=== PATIENT | female | born 1970 | race American Indian/Alaskan Native ===

== ENCOUNTER 2017-07-09 18:20 | Emergency (ER) | payer SELFPAY ==
[2017-07-09 18:51] LABS: Basophils # (Auto) 0.1 K/mm3 (0.0-0.1); Eosinophils # (Auto) 0.2 K/mm3 (0.0-0.4); Eosinophils % (Auto) 2.1 % (0.0-4.3); Hematocrit 39.4 % (30.3-42.9); Hemoglobin 13.1 gm/dl (10.1-14.3); Lymphocytes # (Auto) 2.4 K/mm3 (1.2-5.4); Lymphocytes % (Auto) 31.4 % (13.4-35.0); Mean Corpuscular HGB Conc 33 % (30-34); Mean Corpuscular Hemoglobin 30 pg (28-32); Mean Corpuscular Volume 88 fl (79-97); Monocytes # (Auto) 0.6 K/mm3 (0.0-0.8); Monocytes % (Auto) 8.1 % (0.0-7.3); Platelet Count 208 K/mm3 (140-440); Red Blood Count 4.46 M/mm3 (3.65-5.03); Red Cell Distribution Width 13.5 % (13.2-15.2)
[2017-07-09 19:16] LABS: Alanine Aminotransferase 10 units/L (7-56); Albumin 4.2 g/dL (3.9-5); BUN/Creatinine Ratio 21; Blood Urea Nitrogen 17 mg/dL (7-17); Calcium 9.3 mg/dL (8.4-10.2); Hemolysis Index 1
[2017-07-09 19:39] LABS: Bilirubin,Urine NEG (Negative); Blood,Urine MOD (Negative); Color,Urine Yellow (Yellow); Hyaline Casts,Urine 1 /LPF; Mucus,Urine FEW /HPF; Nitrite,Urine NEG (Negative); Protein,Urine <15 mg/dL mg/dL (Negative)
[2017-07-10] MEDS ORDERED: ZOFRAN IV ONE (00:15)
[2017-07-10] MEDS ORDERED: MORPHINE IV ONE (00:16)
--- NOTE | 2017-07-10 00:18 | Emergency Department Report ---
HPI - General Chief Complaint: Abdominal Pain Time Seen by Provider: 07/09/17 19:28 - HPI HPI: This is a 46 year-old female presents to the emergency department from home with complaint of a one-week history of progressively worsening abdominal pain that currently is located in the left lower quadrant and flank. She denies any dysuria, constipation, diarrhea, fever, vomiting, vaginal bleeding or discharge. She does have some slight nausea. She has a past medical history that includes IBS and she has had colonic polyps removed twice over the past 2 years. She moved here from [place] and therefore does not have any primary care or physician president here. She did not take anything for her symptoms prior to presentation. No known aggravating or alleviating factors. ED Past Medical Hx - Past Medical History Previous Medical History?: Yes Additional medical history: Colon polyps, IBS, Hiatal hernia, Sluggish bowel, Colonoscopies, RBC and WBC elevated in urine 02-22-2017 - Surgical History Past Surgical History?: Yes Hx Appendectomy: Yes Additional Surgical History: colonoscopies, Cervical spine fusion, Right rotator cuff surgery, Uterine ablation - Social History Smoking Status: Never Smoker Substance Use Type: Alcohol, Marijuana, Non Opiate Pain, Prescribed - Medications Home Medications: Home Medications Medication Instructions Recorded Confirmed Last Taken Type HYDROcodone/APAP 5-325 [Hayes 1 each PO Q6HR PRN #10 tablet 07/10/17 Unknown Rx 5/325] ED Review of Systems ROS: Stated complaint: ABDOMINAL PAIN Other details as noted in HPI Comment: All other systems reviewed and negative Constitutional: denies: chills, fever Eyes: denies: eye pain, eye discharge, vision change ENT: denies: ear pain, throat pain Respiratory: denies: cough, shortness of breath, wheezing Cardiovascular: denies: chest pain, palpitations Gastrointestinal: abdominal pain, nausea. denies: vomiting Genitourinary: denies: urgency, dysuria, discharge Musculoskeletal: denies: back pain, joint swelling, arthralgia Skin: denies: rash, lesions Neurological: denies: headache, weakness, paresthesias Physical Exam - Physical Exam Vital Signs: Vital Signs 07/09/17 18:30 Temperature 97.6 F Pulse Rate 68 Respiratory 20 Rate Blood Pressure 150/93 O2 Sat by Pulse 99 Oximetry Physical Exam: GENERAL: The patient is well-developed well-nourished. HENT: Normocephalic. Atraumatic. Patient has moist mucous membranes. EYES: Extraocular motions are intact. Pupils equal reactive to light bilaterally. NECK: Supple. Trachea is midline. CHEST/LUNGS: Clear to auscultation. There is no respiratory distress noted. HEART/CARDIOVASCULAR: Regular. There is no tachycardia. There is no murmur. ABDOMEN: Abdomen is soft. There is some left lower quadrant tenderness to palpation. No guarding or rebound tenderness. Patient has normal bowel sounds. There is no abdominal distention. SKIN: Skin is warm and dry. NEURO: The patient is awake, alert, and oriented. The patient is cooperative. The patient has no focal neurologic deficits. The patient has normal speech. MUSCULOSKELETAL: There is no tenderness or deformity. There is no limitation range of motion. There is no evidence of acute injury. ED Course Vital Signs 07/09/17 18:30 Temperature 97.6 F Pulse Rate 68 Respiratory 20 Rate Blood Pressure 150/93 O2 Sat by Pulse 99 Oximetry ED Medical Decision Making - Lab Data Result diagrams: 07/09/17 18:39 07/09/17 18:39 - Radiology Data Radiology results: report reviewed PROCEDURE: CT ABDOMEN PELVIS W CON TECHNIQUE: Computerized axial tomography of the abdomen and pelvis was performed after the IV injection of iodinated nonionic contrast. HISTORY: LLQ abd and flank pain COMPARISON: No prior studies are available for comparison. FINDINGS: Visualized lower thorax: No significant abnormality. Liver: Normal size and attenuation. There are multiple liver cysts. Largest cyst is in the right lobe measuring 3 centimeters. There is no solid liver lesion. Spleen: Normal size and attenuation. Gallbladder and biliary system: Normal. Pancreas: Normal. Adrenals: Normal. Kidneys: There is a 16 millimeter cyst in the lower pole of the right kidney. There are smaller cysts in the left kidney. There are no kidney stones. There is no hydronephrosis.. GI tract: There is no bowel obstruction, colitis or enteritis. There has been an appendectomy.. Lymph nodes and mesentery: Normal. Vasculature: Normal. Bladder: Normal. Reproductive organs: Uterus and ovaries are unremarkable.. Peritoneum: There is no ascites or free air, abscess or adenopathy.. Musculoskeletal structures: No significant abnormality. Other: None. IMPRESSION: There are multiple liver cysts. Largest cyst is in the right lobe measuring 3 centimeters. There is no solid liver lesion. There is a 16 millimeter cyst in the lower pole of the right kidney. There are smaller cysts in the left kidney. There are no kidney stones. There is no hydronephrosis.. There is no bowel obstruction, colitis or enteritis. There has been an appendectomy.. Uterus and ovaries are unremarkable.. There is no ascites or free air, abscess or adenopathy.. Transcribed By: CO Dictated By: CARLOS SORTO MD Electronically Authenticated By: CARLOS SORTO MD Signed Date/Time: 07/09/172140 - Medical Decision Making Patient presents with a few weeks of left lower quadrant and/or flank pain. Labs have been unremarkable and do not show any etiology of her symptoms. CT scan of the abdomen and pelvis with IV contrast was done that shows a kidney cyst and multiple liver cysts but otherwise no acute process found. Vital signs stable throughout her ED course. She was given some pain and nausea medication and upon reevaluation she is feeling improved. She appears safe for discharge home and has been given a referral for primary care and gastroenterology. She will return to the ER with any worsening of her symptoms or any acute distress. - Differential Diagnosis diverticulitis, colitis, malignancy, bowel obstruction Critical Care Time: No Critical care attestation.: If time is entered above; I have spent that time in minutes in the direct care of this critically ill patient, excluding procedure time. ED Disposition Clinical Impression: Liver cyst Abdominal pain Qualifiers: Abdominal location: left lower quadrant Qualified Code(s): R10.32 - Left lower quadrant pain Hypertension Qualifiers: Hypertension type: essential hypertension Qualified Code(s): I10 - Essential ( primary) hypertension Disposition: DC-01 TO HOME OR SELFCARE Is pt being admited?: No Condition: Stable Instructions: Abdominal Pain (ED), Hypertension (ED) Additional Instructions: I have given you multiple referrals for primary care physicians. Please follow up with a primary care physician as soon as possible. Try and stay away from foods that are high in salt and caffeinated products to help with your elevated blood pressure. Return to the emergency Department with any worsening of your symptoms or any acute distress. Keep a blood pressure log. I have given you a referral for a local physician president, Dr. Leon, to follow up regarding your abdominal pain, liver cysts and previous history of polyps. You have been prescribed a medication that is sedating and therefore should not be taken prior to driving, working, and responsible for children and in no way should be mixed with alcohol of any quantity. Prescriptions: HYDROcodone/APAP 5-325 [Hayes 5/325] 1 each PO Q6HR PRN #10 tablet PRN Reason: Pain Referrals: ANNA LUNDBERG MD [Primary Care Provider] - 3-5 Days CLARISA LOVE MD [Staff Physician] - 3-5 Days BEN LEON MD [Staff Physician] - 3-5 Days Time of Disposition: 02:05
[2017-07-10] MEDS ORDERED: NACL ONE (00:44)
[2017-07-10 00:49] VITALS: BP 167/85
--- NOTE | 2017-07-10 01:46 | Cat Scan Report ---
FINAL REPORT PROCEDURE: CT ABDOMEN PELVIS W CON TECHNIQUE: Computerized axial tomography of the abdomen and pelvis was performed after the IV injection of iodinated nonionic contrast. HISTORY: LLQ abd and flank pain COMPARISON: No prior studies are available for comparison. FINDINGS: Visualized lower thorax: No significant abnormality. Liver: Normal size and attenuation. There are multiple liver cysts. Largest cyst is in the right lobe measuring 3 centimeters. There is no solid liver lesion. Spleen: Normal size and attenuation. Gallbladder and biliary system: Normal. Pancreas: Normal. Adrenals: Normal. Kidneys: There is a 16 millimeter cyst in the lower pole of the right kidney. There are smaller cysts in the left kidney. There are no kidney stones. There is no hydronephrosis.. GI tract: There is no bowel obstruction, colitis or enteritis. There has been an appendectomy.. Lymph nodes and mesentery: Normal. Vasculature: Normal. Bladder: Normal. Reproductive organs: Uterus and ovaries are unremarkable.. Peritoneum: There is no ascites or free air, abscess or adenopathy.. Musculoskeletal structures: No significant abnormality. Other: None. IMPRESSION: There are multiple liver cysts. Largest cyst is in the right lobe measuring 3 centimeters. There is no solid liver lesion. There is a 16 millimeter cyst in the lower pole of the right kidney. There are smaller cysts in the left kidney. There are no kidney stones. There is no hydronephrosis.. There is no bowel obstruction, colitis or enteritis. There has been an appendectomy.. Uterus and ovaries are unremarkable.. There is no ascites or free air, abscess or adenopathy..
== END 2017-07-10 02:21 | disposition home or self-care (01) ==
LOC: ED 18:20
DX: K76.89 Other specified diseases of liver (principal); I10 Essential (primary) hypertension; F12.10 Cannabis abuse, uncomplicated
CPT/HCPCS: 36415; 74177; 80053; 81001; 83690; 84703; 85025; 96374; 96375; 99284; J2270; J2405; Q9967

== ENCOUNTER 2018-07-30 19:38 | Emergency (ER) | payer BC, OTHER ==
--- NOTE | 2018-07-30 20:04 | Emergency Department Report ---
Blank Doc - Documentation Documentation: This is a 48-year-old female that presents with right hand lac that occurred t seth. Stated glass cut her hand. This initial assessment/diagnostic orders/clinical plan/treatment(s) is/are subject to change based on patient's health status, clinical progression and re-assessment by fellow clinical providers in the ED. Further treatment and workup at subsequent clinical providers discretion. Patient/guardians urged not to elope from the ED as their condition may be serious if not clinically assessed and managed. Initial orders include: 1- Patient sent to [facility] for further evaluation and treatment 2- Xray to r/o foreign body
[2018-07-30 20:05] VITALS: BP 169/92
[2018-07-30] MEDS ORDERED: NORCO 5/325 PO ONE (20:52)
[2018-07-30] MEDS ORDERED: BOOSTRIX IM ONE (20:52)
[2018-07-30] MEDS ORDERED: XYLOCAINE 1% 20 mL INFILTRATI ONE (20:52)
[2018-07-30] MEDS ORDERED: XYLOCAINE 2% INFILTRATI ONE ×2 (20:57→21:01)
[2018-07-30] MEDS ORDERED: NORCO 5/325 ONE (20:57)
--- NOTE | 2018-07-30 21:15 | XRay Report ---
PROCEDURE: XR HAND 3+V RT TECHNIQUE: 3 views of the right hand HISTORY: right hand lac r/o foreign body COMPARISONS: FINDINGS: No fracture is identified. No radiopaque foreign body seen. Joint spaces are within normal limits. IMPRESSION: Negative no acute abnormality identified. This document is electronically signed by Will Arzola MD., July 30 2018 09:13:26 PM ET
--- NOTE | 2018-07-30 22:29 | Emergency Department Report ---
ED Laceration HPI - HPI Chief Complaint: Wound/Laceration Stated Complaint: RIGHT HAND LACERATION Time Seen by Provider: 07/30/18 20:03 Occurred When: Today Location: Upper Extremity Severity: moderate Tetanus Status: Not up to Date Laceration Symptoms: Yes Pain, No Foreign Body Sensation, No Numbness, No Weakness Other History: Pt is a 48 yo female who presents to the ED with c/o two lacerations to the right hand that occurred just [employer]. The patient states she was cleaning a glass, and it broke and cut her. She denies any numbness, weakness, tingling. She is able to move all digits. She denies any foreign body sensation. Pt states she is unsure of last tetanus. ED Review of Systems ROS: Stated complaint: RIGHT HAND LACERATION Other details as noted in HPI Comment: All other systems reviewed and negative ED Past Medical Hx - Past Medical History Additional medical history: Colon polyps, IBS, Hiatal hernia, Sluggish bowel, Colonoscopies, RBC and WBC elevated in urine 02-22-2017 - Surgical History Hx Appendectomy: Yes Additional Surgical History: colonoscopies, Cervical spine fusion, Right rotator cuff surgery, Uterine ablation - Social History Smoking Status: Never Smoker Substance Use Type: Alcohol - Medications Home Medications: Home Medications Medication Instructions Recorded Confirmed Last Taken Type Cephalexin [Keflex] 500 mg PO BID 7 Days #14 capsule 07/30/18 Unknown Rx Ibuprofen [Motrin 800 MG tab] 800 mg PO Q8HR #40 tablet 07/30/18 Unknown Rx Laceration Physical Exam - Exam General: Vital signs noted. No distress. Alert and acting appropriately. 2cm laceration to the dorsal surface of the right hand on the pointer finger just proximal to the MCP, 1.5 cm laceration to the dorsal surface of the right hand on the middle finger just proximal to the MCP, both lacerations are superficial, no tendon involvement, no foreign body visualized, neurovascularly intact. Laceration Exam: No Foreign Body, No Exposed Tendon, Vessel, or Nerve, No Tendon Injury, No Normal Distal CMS ED Course Vital Signs 07/30/18 20:04 Temperature 97.9 F Pulse Rate 64 Respiratory 18 Rate Blood Pressure 169/92 O2 Sat by Pulse 96 Oximetry - Laceration /Wound Repair Right Dorsal Hand Wound Location: upper extremity (dorsal aspect of the right hand, 2 cm to the right pointer finger, 1.5 cm to the right middle finger ) Wound's Depth, Shape: superficial Wound Explored: no foreign body removed Irrigated w/ Saline (ccs): 15 Betadine Prep?: Yes Anesthesia: 1% Lidocaine Volume Anesthetic (ccs): 2 Wound Debrided: minimal Wound Repaired With: sutures Suture Size/Type: 4:0 Number of Sutures: 5 Layer Closure?: No Sterile Dressing Applied?: Yes Progress: 3 sutures to the pointer finger laceration, 2 sutures to the middle finger laceration ED Medical Decision Making - Radiology Data Radiology results: report reviewed, image reviewed XR right hand: no acute process, no foreign body - Medical Decision Making Pt was washing a glass when it broke and caused two lacerations to her right hand. Lacerations were closed with 4-0 prolene sutures, 3 sutures were applied to pointer finger, 2 sutures applied to middle finger. No foreign body identified, wound irrigated. Pt neurovascularly intact. Gave pt antibiotics and anti-inflammatory. Advised pt to follow up in 7-10 days for suture removal either with primary care doctor or in the ED. Advised pt if any new or worsening sx return to ED. Critical care attestation.: If time is entered above; I have spent that time in minutes in the direct care of this critically ill patient, excluding procedure time. ED Disposition Clinical Impression: Laceration of right hand Qualifiers: Encounter type: initial encounter Foreign body presence: without foreign body Qualified Code(s): S61.411A - Laceration without foreign body of right hand, initial encounter Disposition: - TO HOME OR SELFCARE Is pt being admited?: No Does the pt Need Aspirin: No Condition: Stable Instructions: Suture Care (ED), Laceration (ED) Additional Instructions: Follow up in 7-10 days with PCP or return to emergency room for suture removal. Return if any new or worsening symptoms. Prescriptions: Cephalexin [Keflex] 500 mg PO BID 7 Days #14 capsule Ibuprofen [Motrin 800 MG tab] 800 mg PO Q8HR #40 tablet Referrals: LIZZY METCALF MD [Primary Care Provider] - 3-5 Days Time of Disposition: 22:35 Print Language: EQUATORIAL GUINEAN
== END 2018-07-30 22:40 | disposition home or self-care (01) ==
LOC: ED 19:38
DX: S61.411A Laceration without foreign body of right hand, initial encounter (principal); Z90.49 Acquired absence of other specified parts of digestive tract; W25.XXXA Contact with sharp glass, initial encounter; Y93.89 Activity, other specified; Y92.89 Other specified places as the place of occurrence of the external cause; Y99.8 Other external cause status
CPT/HCPCS: 90471; 90715

== ENCOUNTER 2019-06-11 09:40 | Emergency (ER) | payer OTHER ==
[2019-06-11] MEDS ORDERED: ASPIRIN 325 MG TAB PO ONE (10:01)
[2019-06-11 11:00] LABS: Basophils # (Auto) 0.1 K/mm3 (0.0-0.1); Basophils % (Auto) 0.6 % (0.0-1.8); Eosinophils # (Auto) 0.4 K/mm3 (0.0-0.4); Hematocrit 40.1 % (30.3-42.9); Hemoglobin 13.2 gm/dl (10.1-14.3); Lymphocytes # (Auto) 2.6 K/mm3 (1.2-5.4); Lymphocytes % (Auto) 28.5 % (13.4-35.0); Mean Corpuscular HGB Conc 33 % (30-34); Mean Corpuscular Volume 89 fl (79-97); Monocytes # (Auto) 0.6 K/mm3 (0.0-0.8); Monocytes % (Auto) 6.8 % (0.0-7.3); Platelet Count 217 K/mm3 (140-440); Red Blood Count 4.52 M/mm3 (3.65-5.03); Red Cell Distribution Width 13.8 % (13.2-15.2)
[2019-06-11 11:22] LABS: BUN/Creatinine Ratio 18; Blood Urea Nitrogen 14 mg/dL (7-17); Calcium 9.3 mg/dL (8.4-10.2); Hemolysis Index 7
--- NOTE | 2019-06-11 11:23 | XRay Report ---
CHEST 1 VIEW INDICATION: Chest Pain. COMPARISON: None FINDINGS: Support devices: None. Heart: Within normal limits. Lungs/Pleura: No acute air space or interstitial disease. Additional findings: Lower cervical fusion at C6-7. IMPRESSION: No acute findings. Signer Name: Aaron Mondragon Jr, MD Signed: 06/11/2019 11:19 AM Workstation Name: [id number]
[2019-06-11] MEDS ORDERED: ASPIRIN 325 MG TAB ONE (14:17)
[2019-06-11 15:21] VITALS: BP 129/85
--- NOTE | 2019-06-11 16:04 | Emergency Department Report ---
ED General Adult HPI - General Chief complaint: Chest Pain Stated complaint: CHEST PAIN Time Seen by Provider: 06/11/19 15:40 Source: patient Mode of arrival: Ambulatory Limitations: No Limitations - History of Present Illness Initial comments: 48yo BF states that she has CP that began last night. She states that the pain radiates to her back and is sharp in nature. -: Gradual Location: chest Radiation: back Severity scale (0 -10): 8 Quality: sharp Consistency: colicky Improves with: none Worsens with: none Associated Symptoms: denies other symptoms Treatments Prior to Arrival: none - Related Data Previous Rx's Medication Instructions Recorded Last Taken Type Cephalexin [Keflex] 500 mg PO BID 7 Days #14 capsule 07/30/18 Unknown Rx Ibuprofen [Motrin 800 MG tab] 800 mg PO Q8HR #40 tablet 07/30/18 Unknown Rx Allergies Allergy/AdvReac Type Severity Reaction Status Date / Time No Known Allergies Allergy Unverified 07/09/17 18:30 ED Review of Systems ROS: Stated complaint: CHEST PAIN Other details as noted in HPI ED Past Medical Hx - Past Medical History Previous Medical History?: Yes Hx Hypertension: Yes Additional medical history: Colon polyps, IBS, Hiatal hernia, Sluggish bowel, Colonoscopies, RBC and WBC elevated in urine 02-22-2017 - Surgical History Hx Appendectomy: Yes Additional Surgical History: colonoscopies, Cervical spine fusion, Right rotator cuff surgery, Uterine ablation - Social History Smoking Status: Unknown if ever smoked Substance Use Type: None - Medications Home Medications: Home Medications Medication Instructions Recorded Confirmed Last Taken Type Cephalexin [Keflex] 500 mg PO BID 7 Days #14 capsule 07/30/18 Unknown Rx Ibuprofen [Motrin 800 MG tab] 800 mg PO Q8HR #40 tablet 07/30/18 Unknown Rx ED Physical Exam - General Limitations: No Limitations General appearance: alert, in no apparent distress - Head Head exam: Present: atraumatic, normocephalic - Eye Eye exam: Present: normal appearance, PERRL, EOMI Pupils: Present: normal accommodation - ENT ENT exam: Present: normal exam, normal orophraynx, normal external ear exam - Neck Neck exam: Present: normal inspection, full ROM. Absent: tenderness - Respiratory Respiratory exam: Present: normal lung sounds bilaterally. Absent: respiratory distress, wheezes - Cardiovascular Cardiovascular Exam: Present: regular rate, normal rhythm, normal heart sounds, other (midsternal pain) - GI/Abdominal GI/Abdominal exam: Present: soft, normal bowel sounds. Absent: distended - Rectal Rectal exam: Present: deferred - Extremities Exam Extremities exam: Present: normal inspection, full ROM, normal capillary refill. Absent: tenderness, pedal edema - Back Exam Back exam: Present: normal inspection, full ROM. Absent: tenderness - Neurological Exam Neurological exam: Present: alert, altered, oriented X3, normal gait - Psychiatric Psychiatric exam: Present: normal affect, normal mood, depressed - Skin Skin exam: Present: warm, dry, intact ED Course Vital Signs 06/11/19 06/11/19 06/11/19 10:00 15:18 15:51 Temperature 98.8 F 97.7 F Pulse Rate 71 67 Respiratory 16 17 18 Rate Blood Pressure 128/77 129/85 O2 Sat by Pulse 99 100 Oximetry ED Medical Decision Making - Lab Data Result diagrams: 06/11/19 10:44 06/11/19 10:44 - Radiology Data [address] [address] XRay Report Signed Patient: BOBBY MORFIN MR#: [id number] : 1970 Acct:[id number] Age/Sex: 48 / F ADM Date: 06/11/19 Loc: ED Attending Dr: Ordering Physician: DEJAH YEUNG MD Date of Service: 06/11/19 Procedure(s): XR chest 1V ap Accession Number(s): [id number] cc: ED MD GAMAL Fluoro Time In Minutes: CHEST 1 VIEW INDICATION: Chest Pain. COMPARISON: None FINDINGS: Support devices: None. Heart: Within normal limits. Lungs/Pleura: No acute air space or interstitial disease. Additional findings: Lower cervical fusion at C6-7. IMPRESSION: No acute findings. Signer Name: Aaron Mondragon Jr, MD Signed: 06/11/2019 11:19 AM Workstation Name: [id number] Transcribed By: TTR Dictated By: AARON MONDRAGON JR, MD Electronically Authenticated By: AARON MONDRAGON JR, MD Signed Date/Time: 06/11/19 1119 DD/ 1118 TD/TT: [address] [place] [address] Cat Scan Report Signed Patient: BOBBY MORFIN MR#: [id number] : 1970 Acct:[id number] Age/Sex: 48 / F ADM Date: 06/11/19 Loc: ED Attending Dr: Ordering Physician: ALCON YEUNG MD Date of Service: 06/11/19 Procedure(s): CT angio chest Accession Number(s): [id number] cc: ALCON YEUNG MD CTA CHEST, ABDOMEN, AND PELVIS WITHOUT AND WITH IV CONTRAST INDICATION: chest pain, to back. TECHNIQUE: Axial CT images were obtained through the chest, abdomen, and pelvis before and after injection of IV contrast. 3 plane MIP reconstructions were produced. All CT scans at this location are performed using CT dose reduction for ALARA by means of automated exposure control. COMPARISON: None available. FINDINGS: Heart: Mild cardiomegaly. Thoracic Aorta: No acute abnormality. Great Vessels: No acute abnormality of visualized great vessels. Pulmonary Arteries: No acute abnormality. Abdominal Aorta: No acute abnormality. Renal arteries: No acute abnormality. Celiac artery: No acute abnormality. Superior mesenteric artery: No acute abnormality. Inferior mesenteric artery: No acute abnormality. Right iliac arteries: No acute abnormality. Left iliac arteries: No acute abnormality. Additional Findings: No acute pulmonary or pleural findings. Incidental hepatic and renal cysts are again noted. No acute solid organ abnormality in the abdomen. No free fluid or adenopathy is seen. No small bowel obstruction is seen. Skeletal Structures: No acute osseous abnormality. IMPRESSION: 1. Thoracoabdominal aorta is unremarkable. No acute findings. Signer Name: Gage Koroma MD Signed: 06/11/2019 6:25 PM Workstation Name: [id number] Transcribed By: Dictated By: Gage Koroma MD Electronically Authenticated By: Gage Koroma MD Signed Date/Time: 06/11/191824 DD/ 19 TD/TT: - Medical Decision Making 48yo BF states that she has CP that began last night. She states that the pain radiates to her back and is sharp in nature. Chest x-ray and chest, abdomen and pelvis CT were negative for acute abnormalities. The pt was given a Toradol injection for pain. She stated that her pain subsided and that she feels better. Pt was instructed to f/u with her PCP in 2-3 days and to see ER as needed. HEART Score for Major Cardiac Events Predicts 6-week risk of major adverse cardiac event. History Slightly suspicious0 Moderately suspicious+1 Highly suspicious+2 EKG 1 point: No ST deviation but LBBB, LVH, repolarization changes (e.g. digoxin); 2 points: ST deviation not due to LBBB, LVH, or digoxin Normal0 Non-specific repolarization disturbance+[address] deviation+2 Age <450 45-64+1 65+2 Risk factors Risk factors: HTN, hypercholesterolemia, DM, obesity (BMI >30 kg/m), smoking (current, or smoking cessation ?3 mo), positive family history (parent or sibling with CVD before age 65); atherosclerotic disease: prior DC, PCI/CABG, CVA/TIA, or peripheral arterial disease No known risk factors0 1-2 risk factors+1 3 risk factors or history of atherosclerotic disease+2 Initial troponin Use local, regular sensitivity troponin assays and corresponding cutoffs normal limit0 13 normal limit+1 >3 normal limit+2 1 points Low Score (0-3 points) Risk of MACE of 0.9-1.7%. Critical care attestation.: If time is entered above; I have spent that time in minutes in the direct care of this critically ill patient, excluding procedure time. ED Disposition Clinical Impression: Chest pain Disposition: - TO HOME OR SELFCARE Is pt being admited?: No Does the pt Need Aspirin: No Condition: Stable Instructions: Chest Pain (ED) Additional Instructions: F/U with PCP in 2-3 days and see ER as needed. Referrals: PRIMARY CAREMD [Primary Care Provider] - 3-5 Days [facility] [Outside] - 3-5 Days Time of Disposition: 18:43
[2019-06-11] MEDS ORDERED: KETOROLAC 30 MG/1 ML INJ ONE (18:04)
[2019-06-11] MEDS ORDERED: KETOROLAC 30 MG/1 ML INJ IV ONE ×2 (18:05→18:07)
--- NOTE | 2019-06-11 18:30 | Cat Scan Report ---
CTA CHEST, ABDOMEN, AND PELVIS WITHOUT AND WITH IV CONTRAST INDICATION: chest pain, to back. TECHNIQUE: Axial CT images were obtained through the chest, abdomen, and pelvis before and after injection of IV contrast. 3 plane MIP reconstructions were produced. All CT scans at this location are performed usi ng CT dose reduction for JIMRA by means of automated exposure control. COMPARISON: None available. FINDINGS: Heart: Mild cardiomegaly. Thoracic Aorta: No acute abnormality. Great Vessels: No acute abnormality of visualized great vessels. Pulmonary Arteries: No acute abnormality. Abdominal Aorta: No acute abnormality. Renal arteries: No acute abnormality. Celiac artery: No acute abnormality. Superior mesenteric artery: No acute abnormality. Inferior mesenteric artery: No acute abnormality. Right iliac arteries: No acute abnormality. Left iliac arteries: No acute abnormality. Additional Findings: No acute pulmonary or pleural findings. Incidental hepatic and renal cysts are a gain noted. No acute solid organ abnormality in the abdomen. No free fluid or adenopathy is seen. No small bowel obstruction is seen. Skeletal Structures: No acute osseous abnormality. IMPRESSION: 1. Thoracoabdominal aorta is unremarkable. No acute findings. Signer Name: Gage Koroma MD Signed: 06/11/2019 6:25 PM Workstation Name: [id number]
== END 2019-06-11 18:59 | disposition home or self-care (01) ==
LOC: ED 09:40
DX: R07.89 Other chest pain (principal); I10 Essential (primary) hypertension; Z90.89 Acquired absence of other organs; Z79.899 Other long term (current) drug therapy
CPT/HCPCS: 36415; 71045; 71275; 74174; 80048; 84484; 85025; 93005; 93010; 96374; 99285; J1885; Q9967